=== PATIENT | female | born 1960 | race Caucasian/White ===

== ENCOUNTER 2018-03-10 06:37 | Day surgery (SDC) | payer OTHER ==
[~2018-03-10] VITALS: Ht 165.1 cm; Wt 67.7 kg
[2018-03-10] MEDS ORDERED: LACTATED RINGERS 1,000 ML IV SCH (07:04)
[2018-03-10 07:09] VITALS: BP 127/83
[2018-03-10] MEDS ORDERED: BIOT10005 PO (07:42)
[2018-03-10] MEDS ORDERED: SELE200C PO (07:42)
[2018-03-10] MEDS ORDERED: INUL1TAB PO (07:42)
[2018-03-10] MEDS ORDERED: ASPI-496 PO (07:42)
[2018-03-10] MEDS ORDERED: OMEG1CAP24 PO (07:42)
[2018-03-10] MEDS ORDERED: LYSI100010 PO (07:42)
[2018-03-10] MEDS ORDERED: CYAN25009 PO (07:42)
[2018-03-10] MEDS ORDERED: PROPOFOL 50 ML ONE (08:22)
[2018-03-10] MEDS ORDERED: GLYCOPYRROLATE 0.2MG/1ML, 5ML ONE (08:22)
[2018-03-10] MEDS ORDERED: LIDOCAINE 2% 100MG/5ML SYRINGE ONE (08:22)
[2018-03-10] MEDS ORDERED: ACETAMINOPHEN 325 MG TABLET PO PRN (09:00)
[2018-03-10] MEDS ORDERED: FENTANYL PF 100 MCG/2ML IV PRN (09:00)
[2018-03-10] MEDS ORDERED: ONDANSETRON ODT 8 MG PO PRN (09:00)
[2018-03-10] MEDS ORDERED: OXYcodone 5 MG/5 ML ORAL.SOL UDC PO PRN (09:00)
[2018-03-10] MEDS ORDERED: ONDANSETRON 2MG/ML, 2ML IV PRN (09:00)
== END 2018-03-10 10:05 | disposition home or self-care (01) ==
LOC: OUT 06:37
PROVIDERS: ATTEND Internal Medicine Geriatric Medicine
DX: K74.3 Primary biliary cirrhosis (principal); K31.89 Other diseases of stomach and duodenum; K21.9 Gastro-esophageal reflux disease without esophagitis; F10.21 Alcohol dependence, in remission; Z88.0 Allergy status to penicillin; Z98.890 Other specified postprocedural states; Z88.1 Allergy status to other antibiotic agents; Z91.040 Latex allergy status
CPT/HCPCS: 43242; 88305; J2704; J3490; J7120